=== PATIENT | female | born 1995 | race Caucasian/White ===

== ENCOUNTER 2022-10-25 22:48 | Outpatient (CLI) | payer OTHER ==
[~2022-10-25] VITALS: Ht 154.9 cm; Wt 168.0 kg
[2022-10-25 22:55] VITALS: BP 114/59; PULSE 72; TEMP 98.8
--- NOTE | 2022-10-25 23:44 | NUR ---
AMB TO L&D WITH C/O FEELING LIGHT HEADED AND SHE WAS GOING TO PASS OUT. DENIES PASSING OUT. STATES HAD A BUSINESS TRIP TO [place] THIS WEEK AND FLEW HOME LAST NIGHT. WENT TO DINNER WITH FRIENDS AND FELT HOT AND DIZZY. TOOK HER BLOOD PRESSURE AND IT WAS 90/ 54. PRESSURE HERE IS 114/54. C/O A HEADACHE JUST SINCE FEELING DIZZY. DENIES VISUAL CHANGE OR SPOTS. NO EDEMA NOTED. STATES PASSED THE GLUCOLA WITH NO PROBLEMS.
[2022-10-26] VITALS: BP 106/58; PULSE 60
--- NOTE | 2022-10-26 00:29 | NUR ---
PATIENT C/O HEADACHE JUST STARTING WHEN SHE GOT TO HOSPITAL. NO VISUAL DISTURBENCE. NO CONTRACTIONS NOTED.
--- NOTE | 2022-10-26 00:32 | NUR ---
DR RAY CALLED WITH REPORT. ORDERS FOR PATIENT TO GO HOME AND REST CALL DR SHEFFIELD ON THURSDAY. IF ANY QUESTIONS PLEASE CALL US BACK.
--- NOTE | 2022-10-26 00:35 | NUR ---
DISCHARGE INSTRUCTIONS GIVEN TO PATIENT AND SPOUSE. PATIENT STATES UNDERSTANDING OF ALL INFORMATION.
== END 2022-10-26 00:15 | disposition home or self-care (01) ==
LOC: LDRO 22:48
DX: Z34.90 Encounter for supervision of normal pregnancy, unspecified, unspecified trimester (principal); Z3A.00 Weeks of gestation of pregnancy not specified